=== PATIENT | female | born 1935 | race Caucasian/White ===

== ENCOUNTER → 2016-09-07 | Outpatient (CLI) | payer OTHER ==
--- NOTE | 2016-09-07 08:49 | MA ---
Screening Digital Right Mammogram Clinical Indications: Routine screening. Personal history of left breast cancer treated with mastecto my. Technique: Standard cephalocaudal and mediolateral oblique projections were obtained of the right br east. This examination was processed by the [employer]iro computer aided detection system. Comparison: August 2015, June 2014, June 2013 ,June 2012.and May 2010 Breast density: D; The breast tissue is extremely dense. This may lower the sensitivity of mammograph y. Findings: CAD was reviewed. Architectural distortion upper right breast, identified with certainty only on the oblique lateral view. The remainder of the right breast is stable. Impression: Architectural distortion upper right breast. Recommend spot compression view. If persiste nt, attempt to localize in the orthogonal plane mammographically, and then proceed to ultrasound at t he discretion of the interpreting radiologist. BI-RADS 0. Additional imaging required.. Recommendation: Routine screening is recommended in one year, as long as physical examination is jorge ign in this patient with extremely dense breast parenchyma. [facility] will send a result letter to the patient. Negative mammography should not preclude additional workup of a clinically suspicious finding. The patient's information is entered into a reminder system with a target due date for her next mammo gram.
== END ==
LOC: CIMAGING 07:08
DX: Z12.31 Encounter for screening mammogram for malignant neoplasm of breast (principal); R92.8 Other abnormal and inconclusive findings on diagnostic imaging of breast; Z85.3 Personal history of malignant neoplasm of breast; Z90.12 Acquired absence of left breast and nipple
CPT/HCPCS: G0202-52

== ENCOUNTER → 2016-09-17 | Outpatient (CLI) | payer OTHER ==
--- NOTE | 2016-09-17 14:28 | MA ---
Right Diagnostic Digital Mammogram with iCAD Clinical Indications: Asymmetric density on recent screening mammogram. Previous left breast carcinom a post mastectomy. Technique: Digital spot compression mediolateral oblique , exaggerated CC, and true lateral views. Th is examination was processed by the iCAD computer-aided detection system. Comparison: Recent mammogram. August 2016, August 2015, June 2014, June 2013. Breast Density: C, 50-75%. Findings: No evidence of architectural distortion on the additional views. This most likely represent s normal overlapping breast parenchyma. However, there is dense heterogenous parenchymal pattern and therefore additional imaging with ultrasound is recommended given the patient's previous left breast carcinoma. Impression: ACR BI-RADS 0: Needs further imaging. Recommendation: Recommend ultrasound of the right breast upper aspect which will be subsequently perf ormed given the patient's dense parenchymal pattern and prior history of breast carcinoma. Please see ultrasound report and recommendations. [facility] will send a result letter to the patient. Findings and recommendations have been discussed with the patient who agrees with the plan.
--- NOTE | 2016-09-17 14:42 | US ---
Ultrasound Right Breast History: Dense right breast parenchyma on mammography. Previous left breast carcinoma. Technique: Ultrasound imaging of the upper outer and upper inner quadrants of the right breast from t he 9 to the 3 o'clock position was performed by the maintenance and repair worker and me. Findings: No ultrasound evidence of dominant solid or cystic lesion in the right breast upper inner o r upper outer quadrants. No suspicious findings on mammography or ultrasound. Impression: 1. BI-RADS 1: Negative ultrasound of the right breast. 2. No ultrasound evidence of dominant solid or cystic lesion in the right breast upper outer or upper inner quadrant. 3. Recommend screening annual mammograms with next mammogram in August 2017. Findings and recommendations have been discussed with the patient who agrees with the plan.
== END ==
LOC: CIMAGING 13:16
DX: Z12.39 Encounter for other screening for malignant neoplasm of breast (principal); R92.2 Inconclusive mammogram
CPT/HCPCS: 76641; G0206

== ENCOUNTER 2016-11-30 07:01 | Emergency (ER) | payer OTHER ==
--- NOTE | 2016-11-30 07:09 | UCPHY ---
H & P Time Seen by Provider: 11/30/16 07:08 Patient Type: Established HPI/ROS: CHIEF COMPLAINT: Cough, and itching HISTORY OF PRESENT ILLNESS: Patient developed a cough last week and. Wednesday she felt like she had a little bit of laryngitis and could only speak in a whisper. She has been taking Mucinex and Flonase over the past week. She borrowed and albuterol MDI for friend and used it Wednesday and twice on Wednesday. At 2:00 a.m. this morning she woke up with itching from her ears to her toes. She did not have associated angioedema or swollen throat or tongue. Cough continues and is moderate. It is not paroxysmal. No hemoptysis. No chest pain. REVIEW OF SYSTEMS: Eye: no change in vision ENT: no sore throat or earache Cardiac: no chest pain or syncope Pulmonary: no cough or SOB Abdomen: no vomiting, diarrhea, abdominal pain Musculoskeletal: no back pain Skin: no rash Neuro: Headache yesterday but none now Constitutional: no fever : no urinary symptoms A comprehensive 10 point review of systems is otherwise negative aside from elements mentioned in the history of present illness. PAST MEDICAL HISTORY: Breast cancer Family history negative DVT Social history: Nonsmoker General Appearance: Alert and conversant, cooperative. Eyes: No scleral icterus. ENT, Mouth: Normal mucous membranes. Normal pharynx without angioedema. Respiratory: Normal respiratory effort, breath sounds equal, lungs are clear to auscultation. No wheezing or stridor or rales. Cardiovascular: Regular rate and rhythm. Gastrointestinal: Abdomen is soft and non tender. Neurological: Alert and oriented x3. Normally conversant. Face symmetric, normal movement and sensation in all extremities. Skin: Warm and dry, no rashes. No urticaria. Musculoskeletal: No peripheral edema and no joint swelling. No calf tenderness. Psychiatric: Not agitated. Emergency Department course/MDM: Patient presents with chest cold and itching which is possibly reaction to albuterol. Warned not to use that medication anymore she may be allergic. I think pneumonia is unlikely. I think pulmonary embolism is unlikely. Treatment symptomatic with antitussives, Benadryl if needed for itching. Smoking Status: Never smoked Constitutional: Initial Vital Signs Temperature (C) 36.5 C 11/30/16 07:15 Heart Rate 74 11/30/16 07:15 Respiratory Rate 18 11/30/16 07:15 Blood Pressure 132/85 H 11/30/16 07:15 O2 Sat (%) 95 11/30/16 07:15 O2 Delivery Mode Room Air Allergies/Adverse Reactions: Penicillins Allergy (Verified 11/30/16 07:15) Home Medications: Medication Instructions Recorded Herbals/Supplements -Info Only 1 ea PO DAILY 08/03/14 Acetaminophen [Tylenol 325mg (*)] 650 mg PO Q4 PRN #0 tab 08/04/14 Aspirin EC [Aspirin EC 81 mg (*)] 81 mg PO DAILY #0 tab 08/04/14 Benzonatate [Tessalon Pearles (RX)] 100 mg PO Q8 PRN #15 cap 11/30/16 Hydrocodone Bit/Homatropine 1 each PO HS PRN #10 tablet 11/30/16 [HYCODAN TABLET] Departure - Departure Disposition: Home, Routine, Self-Care Clinical Impression: Chest cold Allergic reaction caused by a drug Qualifiers: Encounter type: initial encounter Qualified Code(s): T78.40XA - Allergy, unspecified, initial encounter Condition: Good Instructions: Upper Respiratory Infection (ED) Additional Instructions: No more albuterol; possible that you are allergic to albuterol. It is okay to take 25 mg oral Benadryl every 6-8 hours for the next 3 days for itching as needed. Referrals: Zunilda Preston MD [Primary Care Provider] - As per Instructions Prescriptions: Benzonatate [Tessalon Pearles (RX)] 100 mg PO Q8 PRN #15 cap PRN Reason: Cough, Moderate Hydrocodone Bit/Homatropine [HYCODAN TABLET] 1 each PO HS PRN #10 tablet PRN Reason: Cough, Moderate - PQRS PQRS Measurement: .
[2016-11-30 07:17] VITALS: BP 132/85; PULSE 74; RESP 18; TEMP 97.7; O2SAT 95
== END 2016-11-30 07:25 | disposition home or self-care (01) ==
LOC: CED 07:01
DX: J06.9 Acute upper respiratory infection, unspecified (principal); T78.40XA Allergy, unspecified, initial encounter
CPT/HCPCS: 99214-PO; G0463-PO

== ENCOUNTER → 2017-09-10 | Outpatient (CLI) | payer OTHER | LOC: CIMAGING 09:26 | PROVIDERS: ATTEND Internal Medicine | DX: Z12.31 Encounter for screening mammogram for malignant neoplasm of breast (principal); Z90.12 Acquired absence of left breast and nipple ==

== ENCOUNTER → 2017-09-13 | Outpatient (CLI) | payer OTHER | LOC: FIMAGING 11:40 | PROVIDERS: ATTEND Internal Medicine Rheumatology | DX: Z13.820 Encounter for screening for osteoporosis (principal); M81.0 Age-related osteoporosis without current pathological fracture ==

== ENCOUNTER → 2018-09-19 | Outpatient (CLI) | payer OTHER, MEDICARE | LOC: CIMAGING 14:17 | PROVIDERS: ATTEND Internal Medicine | DX: Z12.31 Encounter for screening mammogram for malignant neoplasm of breast (principal); Z85.3 Personal history of malignant neoplasm of breast; Z90.12 Acquired absence of left breast and nipple ==

== ENCOUNTER → 2019-02-01 | Outpatient (CLI) | payer OTHER, MEDICARE | LOC: FIMAGING 10:55 ==

== ENCOUNTER → 2019-02-13 | Outpatient (CLI) | payer OTHER, MEDICARE | LOC: FIMAGING 10:06 ==